=== PATIENT | female | born 1945 | race Two or more races ===

== ENCOUNTER 2017-06-03 13:09 | Outpatient (CLI) | payer OTHER ==
[~2017-06-03 13:09] MED LIST: COLD PO; PREVACID30 MG PO; PRILOSEC20 MG PO; TYLENOL COLD CA1 TA1 PO; [UNRECOGNIZED DRUG - OTHER] PO
== END 2017-06-03 13:12 | disposition home or self-care (01) ==
LOC: LAB 13:09
DX: Z11.3 Encounter for screening for infections with a predominantly sexual mode of transmission (principal)

== ENCOUNTER 2017-08-18 08:33 | Outpatient (CLI) | payer OTHER | END 2017-08-18 08:56 | disposition HB | LOC: LAB 08:33 | DX: I11.9 Hypertensive heart disease without heart failure (principal); E78.4 Other hyperlipidemia; E03.8 Other specified hypothyroidism ==

== ENCOUNTER 2018-02-04 13:20 | Outpatient (CLI) | payer OTHER | END 2018-02-04 13:32 | disposition home or self-care (01) | LOC: RAD 501 13:20 | DX: M25.571 Pain in right ankle and joints of right foot (principal) ==

== ENCOUNTER 2018-02-09 10:08 | Outpatient (CLI) | payer OTHER | END 2018-02-09 10:27 | disposition home or self-care (01) | LOC: LAB 10:08 | DX: I11.9 Hypertensive heart disease without heart failure (principal); E03.8 Other specified hypothyroidism; E78.49 Other hyperlipidemia ==

== ENCOUNTER 2018-02-10 09:43 | Outpatient (CLI) | payer OTHER | END 2018-02-10 09:48 | disposition home or self-care (01) | LOC: NUCLEAR 09:43 | DX: M85.89 Other specified disorders of bone density and structure, multiple sites (principal); M81.0 Age-related osteoporosis without current pathological fracture ==

== ENCOUNTER 2018-08-13 10:14 | Outpatient (CLI) | payer OTHER | END 2018-08-13 16:59 | disposition home or self-care (01) | LOC: LAB 10:14 | DX: E03.8 Other specified hypothyroidism (principal); E78.49 Other hyperlipidemia ==

== ENCOUNTER 2018-08-18 11:53 | Outpatient (CLI) | payer OTHER | END 2018-08-18 13:11 | disposition home or self-care (01) | LOC: RAD 501 11:53 | DX: M16.12 Unilateral primary osteoarthritis, left hip (principal) ==

== ENCOUNTER 2018-11-02 09:54 | Outpatient (CLI) | payer OTHER | END 2018-11-02 10:10 | disposition home or self-care (01) | LOC: MAMO-SONO 09:54 | DX: N60.11 Diffuse cystic mastopathy of right breast (principal); Z12.31 Encounter for screening mammogram for malignant neoplasm of breast; Z87.898 Personal history of other specified conditions ==

== ENCOUNTER 2019-02-16 11:05 | Outpatient (CLI) | payer OTHER | END 2019-02-16 11:13 | disposition home or self-care (01) | LOC: LAB 11:05 | DX: E78.49 Other hyperlipidemia (principal); I11.9 Hypertensive heart disease without heart failure; E03.8 Other specified hypothyroidism ==

== ENCOUNTER → 2019-04-22 | Outpatient (CLI) | payer OTHER | END | disposition home or self-care (01) | LOC: SONOGRAMA 10:40 → MAMO-SONO 11:15 | DX: N30.00 Acute cystitis without hematuria (principal) ==

== ENCOUNTER 2020-07-26 09:38 | Outpatient (CLI) | payer OTHER | END 2020-07-26 09:45 | disposition home or self-care (01) | LOC: LAB 09:38 | PROVIDERS: ATTEND Orthopaedic Surgery | DX: M81.8 Other osteoporosis without current pathological fracture (principal); E55.9 Vitamin D deficiency, unspecified; M85.9 Disorder of bone density and structure, unspecified; E21.3 Hyperparathyroidism, unspecified; E56.1 Deficiency of vitamin K ==

== ENCOUNTER → 2020-09-07 | Outpatient (CLI) | payer OTHER | END | disposition home or self-care (01) | LOC: RAD 12:44 | DX: Z01.818 Encounter for other preprocedural examination (principal) ==

== ENCOUNTER 2020-10-17 10:25 | Outpatient (CLI) | payer OTHER | END 2020-10-17 10:31 | disposition home or self-care (01) | LOC: RAD 10:25 | PROVIDERS: ATTEND Orthopaedic Surgery | DX: M25.572 Pain in left ankle and joints of left foot (principal); M25.561 Pain in right knee ==

== ENCOUNTER 2021-10-31 10:01 | Outpatient (CLI) | payer OTHER | END 2021-10-31 10:03 | disposition home or self-care (01) | LOC: LAB 10:01 | PROVIDERS: ATTEND Orthopaedic Surgery | DX: E55.9 Vitamin D deficiency, unspecified (principal); M85.9 Disorder of bone density and structure, unspecified; E56.1 Deficiency of vitamin K; E21.3 Hyperparathyroidism, unspecified; E88.9 Metabolic disorder, unspecified; M81.8 Other osteoporosis without current pathological fracture ==

== ENCOUNTER 2021-11-12 12:05 | Outpatient (CLI) | payer OTHER | END 2021-11-12 12:10 | disposition home or self-care (01) | LOC: MAMO-SONO 12:05 | PROVIDERS: ATTEND Obstetrics & Gynecology | DX: Z12.31 Encounter for screening mammogram for malignant neoplasm of breast (principal); N60.11 Diffuse cystic mastopathy of right breast ==

== ENCOUNTER 2022-04-17 11:31 | Outpatient (CLI) | payer OTHER | END 2022-04-17 11:34 | disposition home or self-care (01) | LOC: RAD 11:31 | PROVIDERS: ATTEND Ophthalmology | DX: Z01.818 Encounter for other preprocedural examination (principal) ==

== ENCOUNTER 2023-01-12 13:33 | Outpatient (CLI) | payer OTHER | END 2023-01-12 13:39 | disposition home or self-care (01) | LOC: RAD 13:33 | PROVIDERS: ATTEND Physical Medicine & Rehabilitation | DX: M54.6 Pain in thoracic spine (principal); M54.59 Other low back pain; M17.0 Bilateral primary osteoarthritis of knee ==

== ENCOUNTER 2023-03-31 09:17 | Outpatient (CLI) | payer OTHER ==
[2023-03-31 10:33] LABS: ALBUMIN 3.5 gm/dL (3.4-5.0); BILIRUBIN TOTAL 0.38 mg/dL (0.3-1.2); CREATININE SERUM 0.77 mg/dL (0.55-1.02); GFR 72.5; GLOBULINA 3.8 G/DL (2.4-3.5); MAGNESIUM 2.4 mg/dL (1.8-2.4); PHOSPHOROUS 3.4 mg/dL (2.5-4.9); POTASSIUM 3.74 mEq/L (3.5-5.1); TOTAL PROTEIN 7.3 gm/dL (6.4-8.2)
[2023-03-31 11:02] LABS: VITAMIN D3 25 HYDROXY 45.07 ng/ml (30-120)
[2023-04-03 12:11] LABS: VITAMIN K 0.25 ng/mL (0.10-2.20)
== END 2023-03-31 09:18 | disposition home or self-care (01) ==
LOC: LAB 09:17
PROVIDERS: ATTEND Orthopaedic Surgery
DX: E55.9 Vitamin D deficiency, unspecified (principal); M85.9 Disorder of bone density and structure, unspecified; E56.1 Deficiency of vitamin K; E21.3 Hyperparathyroidism, unspecified; M81.8 Other osteoporosis without current pathological fracture; E88.89 Other specified metabolic disorders; D51.9 Vitamin B12 deficiency anemia, unspecified

== ENCOUNTER 2023-04-07 09:25 | Outpatient (CLI) | payer OTHER | END 2023-04-07 09:26 | disposition home or self-care (01) | LOC: NUCLEAR 09:25 | PROVIDERS: ATTEND Physical Medicine & Rehabilitation | DX: I73.9 Peripheral vascular disease, unspecified (principal) ==

== ENCOUNTER → 2023-04-14 | Outpatient (CLI) | payer OTHER | END | disposition home or self-care (01) | LOC: NUCLEAR 04-08 10:00 | PROVIDERS: ATTEND Physical Medicine & Rehabilitation | DX: I87.2 Venous insufficiency (chronic) (peripheral) (principal) ==

== ENCOUNTER 2023-11-19 13:02 | Outpatient (CLI) | payer OTHER | END 2023-11-19 13:12 | disposition home or self-care (01) | LOC: MAMO-SONO 13:02 | PROVIDERS: ATTEND Obstetrics & Gynecology | DX: N60.11 Diffuse cystic mastopathy of right breast (principal); Z12.31 Encounter for screening mammogram for malignant neoplasm of breast ==

== ENCOUNTER 2024-04-11 09:55 | Outpatient (CLI) | payer OTHER ==
[2024-04-11 12:16] LABS: ALBUMIN 3.3 gm/dL (3.4-5.0); BILIRUBIN TOTAL 0.37 mg/dL (0.3-1.2); CALCIUM 8.9 mg/dL (8.5-10.1); CREATININE SERUM 0.69 mg/dL (0.55-1.02); GFR 82.07; GLOBULINA 3.8 G/DL (2.4-3.5); MAGNESIUM 1.9 mg/dL (1.8-2.4); PHOSPHOROUS 3.4 mg/dL (2.5-4.9); POTASSIUM 4.21 mEq/L (3.5-5.1); TOTAL PROTEIN 7.1 gm/dL (6.4-8.2)
== END 2024-04-11 12:51 | disposition home or self-care (01) ==
LOC: LAB 09:55
PROVIDERS: ATTEND Orthopaedic Surgery
DX: E55.9 Vitamin D deficiency, unspecified (principal); M85.9 Disorder of bone density and structure, unspecified; E56.1 Deficiency of vitamin K; E21.3 Hyperparathyroidism, unspecified; E88.89 Other specified metabolic disorders; M81.8 Other osteoporosis without current pathological fracture

== ENCOUNTER → 2024-05-11 12:20 | Outpatient (CLI) | payer OTHER | END | disposition home or self-care (01) | LOC: NUCLEAR 04-28 13:30 | PROVIDERS: ATTEND Orthopaedic Surgery | DX: M81.0 Age-related osteoporosis without current pathological fracture (principal) ==

== ENCOUNTER 2024-07-04 13:32 | Outpatient (CLI) | payer OTHER | END 2024-07-04 13:36 | disposition home or self-care (01) | LOC: RAD 13:32 | PROVIDERS: ATTEND Orthopaedic Surgery | DX: M79.641 Pain in right hand (principal) ==

== ENCOUNTER 2024-08-17 10:34 | Outpatient (CLI) | payer OTHER | END 2024-08-17 10:44 | disposition home or self-care (01) | LOC: TOM 10:34 | PROVIDERS: ATTEND Internal Medicine Pulmonary Disease | DX: G44.029 Chronic cluster headache, not intractable (principal) ==

== ENCOUNTER 2024-08-17 11:16 | Outpatient (CLI) | payer OTHER ==
[2024-08-17 12:02] LABS: PH,URINE 5.5 (5.0-8.0); URINE APPEARANCE Clear; URINE BILIRRUBIN Negative (NEGATIVE); URINE BLOOD Large; URINE COLOR Yellow; URINE GLUCOSE Negative (NEGATIVE); URINE KETONE Negative (NEGATIVE); URINE LEUKOCYTE Moderate; URINE NITRATE Negative; URINE PROTEIN Negative (NEGATIVE); URINE UROBILINOGEN 0.2 E.U./dl
[2024-08-17 12:05] LABS: URINE BACTERIA 1024.3 uL (0.0-1933); URINE EPITHELIAL CELLS 36.5 uL (0.0-38.8); URINE RBC 166.1 uL (0.0-20.8); URINE WBC 33.2 uL (0.0-23.2)
[2024-08-17 12:24] LABS: URINE CAST 0.29 uL (0.0-1.40)
== END 2024-08-17 11:18 | disposition home or self-care (01) ==
LOC: LAB 11:16
PROVIDERS: ATTEND Specialist
DX: N39.0 Urinary tract infection, site not specified (principal)

== ENCOUNTER 2024-10-31 09:30 | Outpatient (CLI) | payer OTHER | END 2024-10-31 09:32 | disposition home or self-care (01) | LOC: NUCLEAR 09:30 | PROVIDERS: ATTEND General Practice | DX: I73.89 Other specified peripheral vascular diseases (principal); I83.892 Varicose veins of left lower extremity with other complications; I87.2 Venous insufficiency (chronic) (peripheral) ==